=== PATIENT | male | born 1965 | race Caucasian/White ===

== ENCOUNTER 2016-08-03 13:21 | Emergency (ER) | payer SELFPAY ==
[~2016-08-03 13:21] MED LIST: DOXY100T17 OR; VENTAER INH; Z.0.NO CURRENT MEDS
[2016-08-03 13:22] VITALS: BP_SYST 117; BP_DIAS 34; BP_DIAS 54; PULSE 76; RESP 15; TEMP 97.8; O2SAT 98
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
[2016-08-03] MEDS ORDERED: METHOCARBAMOL 500 MG TAB PO ONE (14:30)
[2016-08-03] MEDS ORDERED: IBUPROFEN 800 MG TAB PO ONE (14:30)
[2016-08-03] MEDS ORDERED: ROBA500T PO (14:34)
[2016-08-03] MEDS ORDERED: IBUP800T23 PO (14:34)
--- NOTE | 2016-08-03 14:40 | RADRPT ---
EXAM DATE/TIME: 08/03/2016 13:51 [facility] COMPARISON: No previous studies available for comparison. INDICATIONS : Right elbow pain from fall. MEDICAL HISTORY : None. SURGICAL HISTORY : None. ENCOUNTER: Initial ACUITY: 2 days PAIN SCORE: 10/10 LOCATION: Right Elbow FINDINGS: Multiple view examination of the right elbow demonstrates elbow joint to be aligned. A fracture is no t seen. There is some prominence of the anterior fat-pad but a posterior fat-pad to confirm an effusi on is not seen. Bony mineralization is normal. CONCLUSION: There is prominence to the anterior fat-pad but an effusion is not clearly confirmed by a posterior f at-pad. No fracture is seen. Juan Carlos Loar MD on August 03, 2016 at 14:36 Board Certified Radiologist. This report was verified electronically.
== END 2016-08-03 15:19 | disposition home or self-care (01) ==
LOC: NEPD 13:21
DX: M25.521 Pain in right elbow (principal); M62.838 Other muscle spasm; M54.2 Cervicalgia; F17.210 Nicotine dependence, cigarettes, uncomplicated
CPT/HCPCS: 73080; 99283

== ENCOUNTER 2017-02-25 16:17 | Emergency (ER) | payer OTHER ==
[~2017-02-25] VITALS: Ht 175.3 cm; Wt 68.2 kg
[~2017-02-25 16:17] MED LIST changes: +CYCL10TA PO; -DOXY100T17 OR; +IBUP1TAB7 PO; +NAPR500T2 PO; +ROBA500T PO; -VENTAER INH; -Z.0.NO CURRENT MEDS
[2017-02-25 16:39] VITALS: BP 121/74; PULSE 72; RESP 15; O2SAT 100
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
[2017-02-25] MEDS ORDERED: MAPA500T13 PO (17:42)
[2017-02-25] MEDS ORDERED: CYCL10TA PO (17:42)
[2017-02-25] MEDS ORDERED: IBUP-232 PO (17:42)
[2017-02-25 18:06] VITALS: BP 120/72
== END 2017-02-25 18:07 | disposition home or self-care (01) ==
LOC: NEPD 16:17
DX: S16.1XXA Strain of muscle, fascia and tendon at neck level, initial encounter (principal); S39.012A Strain of muscle, fascia and tendon of lower back, initial encounter; R51 Headache; M50.31 Other cervical disc degeneration, high cervical region; G40.909 Epilepsy, unspecified, not intractable, without status epilepticus; F17.200 Nicotine dependence, unspecified, uncomplicated; V43.62XA Car passenger injured in collision with other type car in traffic accident, initial encounter; Z79.899 Other long term (current) drug therapy
CPT/HCPCS: 70450; 72125; 99285